=== PATIENT | male | born 1985 | race Hispanic/Latino ===

== ENCOUNTER 2018-07-08 11:23 | Emergency (ER) | payer OTHER ==
[2018-07-08 11:30] VITALS: RESP 18; TEMP 98.1; BMI 24.3
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
[2018-07-08 13:45] VITALS: BP 120/82; PULSE 80; O2SAT 96
== END 2018-07-08 13:51 | disposition home or self-care (01) ==
LOC: ED 11:23
DX: R07.81 Pleurodynia (principal); M79.631 Pain in right forearm; V03.90XA Pedestrian on foot injured in collision with car, pick-up truck or van, unspecified whether traffic or nontraffic accident, initial encounter; Y93.K1 Activity, walking an animal